=== PATIENT | male | born 1960 | race Two or more races ===

== ENCOUNTER → 2018-06-30 | Outpatient (CLI) | payer MEDICAID | END | disposition home or self-care (01) | LOC: RADPV 09:58 | PROVIDERS: ATTEND Hospitalist | DX: N18.4 Chronic kidney disease, stage 4 (severe) (principal) | CPT/HCPCS: 76770 ==

== ENCOUNTER → 2019-06-08 | Outpatient (CLI) | payer OTHER | END | disposition home or self-care (01) | LOC: RADPV 09:50 | PROVIDERS: ATTEND Hospitalist | DX: N28.89 Other specified disorders of kidney and ureter (principal) | CPT/HCPCS: 76770 ==

== ENCOUNTER 2020-12-19 21:31 | Emergency (ER) | payer MEDICAID, OTHER ==
[~2020-12-19] VITALS: Ht 170.2 cm; Wt 75.9 kg
[2020-12-19 21:36] VITALS: BP 148/67
[2020-12-19] MEDS ORDERED: AMLO-257 PO (21:41)
[2020-12-19] MEDS ORDERED: METO25 PO (21:41)
[2020-12-19 21:47] LABS: GLUCOSE,POINT OF CARE 85 MG/DL (70-110)
== END 2020-12-19 22:55 | disposition home or self-care (01) ==
LOC: EMS 21:31
DX: T82.590A Other mechanical complication of surgically created arteriovenous fistula, initial encounter (principal); E11.9 Type 2 diabetes mellitus without complications; I10 Essential (primary) hypertension; F17.200 Nicotine dependence, unspecified, uncomplicated; F12.90 Cannabis use, unspecified, uncomplicated
CPT/HCPCS: 82962; 99282